=== PATIENT | female | born 1970 | race Caucasian/White ===

== ENCOUNTER 2019-07-20 05:08 | Emergency (ER) | payer BC ==
[~2019-07-20] VITALS: Ht 162.6 cm; Wt 108.9 kg
--- NOTE | 2019-07-20 05:08 | NUR ---
0505- Dr. Wall examining patient.
--- NOTE | 2019-07-20 05:08 | NUR ---
0500- PT PAMELA OBRIENS. TAKEN TO BED 4
--- NOTE | 2019-07-20 05:19 | NUR ---
INITIATED TELEPSYCH PER DR. CASON
[2019-07-20] MEDS ORDERED: MEX2.5 PO (05:27)
[2019-07-20] MEDS ORDERED: folic acid PO (05:27)
[2019-07-20] MEDS ORDERED: ALBU0.0912 INH (05:27)
[2019-07-20] MEDS ORDERED: QUET50TA PO (05:27)
[2019-07-20 05:29] VITALS: BP 116/70
--- NOTE | 2019-07-20 05:40 | NUR ---
48 YEAR OLD FEMALE BIBA FROM HOME. PER PATIENT SHE HAS BEEN UNABLE TO SLEEP BECAUSE SHE HAS BEEN CLEANING HER HOUSE NONSTOP BECAUSE SHE BELIEVES THERE ARE BED BUGS IN HER HOUSE. PATIENT STATES THAT SHE DOES NOT WANT TO GO BACK AND WANTS TO BE ABLE TO SLEEP. PATIENT STATES SHE HAS BEEN TAKING HER SEROQUIL MEDICATIONS ORDERED. PATIENT DENIES SI AND HI. PATIENT AOX4, BREATHING EVEN AND UNLABORED, SKIN WARM AND DRY. BED IN LOWEST POSITION, LOCKED, BED RAIL UPX1. ERMD AT BEDSIDE, NO OTHER COMPLAINTS AT THIS TIME. PMH - BIPOLAR, GALLBLADER REMOVAL, DM2, SLE ALLERGIES - NKA
--- NOTE | 2019-07-20 05:40 | NUR ---
Note vandana in EDM - 07/20/19 at 0715 by GINO 48 YEAR OLD FEMALE BIBA FROM HOME. PER PATIENT SHE HAS BEEN UNABLE TO SLEEP BECAUSE SHE HAS BEEN CLEANING HER HOUSE NONSTOP BECAUSE SHE BELIEVES THERE ARE BED BUGS IN HER HOUSE. PATIENT STATES THAT SHE DOES NOT WANT TO GO BACK AND WANTS TO BE ABLE TO SLEEP. PATIENT STATES SHE HAS BEEN TAKING HER SEROQUIL MEDICATIONS ORDERED. PATIENT AOX4, BREATHING EVEN AND UNLABORED, SKIN WARM AND DRY. BED IN LOWEST POSITION, LOCKED, BED RAIL UPX1. ERMD AT BEDSIDE, NO OTHER COMPLAINTS AT THIS TIME. PMH - BIPOLAR, GALLBLADER REMOVAL, DM2, SLE ALLERGIES - NKA
--- NOTE | 2019-07-20 05:54 | NUR ---
PATIENT STATES UNABLE TO URINATE, ERMD MADE AWARE
--- NOTE | 2019-07-20 05:55 | NUR ---
Ilia ross in [facility] - 07/20/19 at 0656 by MEDJJ PATIENT ON TELEPSYCHE
[2019-07-20 06:06] LABS: BASOPHILS % (AUTO) 0.6 % (0.0-2.0); EOSINOPHILS # (AUTO) 0.2 K/uL (0-0.4); EOSINOPHILS % (AUTO) 4.1 % (0.0-4.0); HEMATOCRIT 37.1 % (36-48); HEMOGLOBIN 12.1 g/dL (12.0-16.0); LYMPHOCYTES # (AUTO) 1.9 K/uL (2.5-16.5); LYMPHOCYTES % (AUTO) 32.7 % (20.5-51.1); MEAN CORPUSCULAR HEMOGLOBIN 28 pg (27-31); MEAN CORPUSCULAR HGB CONC 33 g/dL (33-37); MEAN CORPUSCULAR VOLUME 85.8 fL (80-94); MONOCYTES # (AUTO) 0.6 K/uL (0.8-1.0); MONOCYTES % (AUTO) 11.1 % (1.7-9.3); NEUTROPHILS % (AUTO) 51.5 % (42.2-75.2); PLATELET COUNT (AUTO) 331 K/uL (140-450); RED BLOOD CELL COUNT(AUTO) 4.32 MIL/uL (4.20-5.40); RED CELL DISTRIBUTION WIDTH 16.4 % (11.6-13.7); WHITE BLOOD COUNT (AUTO) 5.8 K/uL (4.8-10.8)
[2019-07-20 06:23] LABS: ALBUMIN 3.5 g/dL (3.4-5.0); ANION GAP 11.7 (8-16); ASPARTATE AMINOTRANSFERASE 37 U/L (15-37); CARBON DIOXIDE 25.7 mmol/L (21-32); CHLORIDE 102 mmol/L (98-107); CREATININE 0.9 mg/dL (0.6-1.3); GFR ARICAN-AMERICAN 87 mL/min (>90); GLUCOSE 115 mg/dL (74-106); POTASSIUM 3.4 mmol/L (3.5-5.1); SODIUM SERUM 136 mmol/L (136-145); TOTAL BILIRUBIN 0.7 mg/dL (0.0-1.0); UREA NITROGEN, BLOOD 13 mg/dL (7-18)
--- NOTE | 2019-07-20 06:26 | NUR ---
PATIENT CONTINUES TO TALK ONTO PHONE, STATES SHE IS "TOO WEAK" TO URINATE AND TOO WEAK TO PUT ON GOWN. PATIENT ALERT AND AWAKE, BREATHING EVEN AND UNLABORED
[2019-07-20 06:35] LABS: ACETAMINOPHEN < 0.5 ug/ml (10-30); SALICYLATE < 2.8 mg/dL (2.8-20.0)
--- NOTE | 2019-07-20 06:47 | NUR ---
ambulatory to restroom without assistance. strong/steady gait.
[2019-07-20 06:58] LABS: APPEARANCE,URINE CLEAR (CLEAR); BILIRUBIN,URINE NEGATIVE (NEGATIVE); BLOOD, URINE NEGATIVE (NEGATIVE); COLOR,URINE YELLOW (YELLOW); LEUKOCYTE ESTERASE ,URINE 1+ (NEGATIVE); NITRITE, URINE NEGATIVE (NEGATIVE); PH,URINE 5.5 (5.0-9.0); UGLUCOSE NEGATIVE (NEGATIVE)
[2019-07-20 07:02] LABS: RBC,URINE 0-5 /HPF (0-5)
[2019-07-20 07:06] LABS: BARBITURATE, URINE NEGATIVE ng/ml (NEG <=200); BENZODIAZEPINE, URINE NEGATIVE ng/mL (NEG <=200); CANNABINOID, URINE NEGATIVE ng/mL (NEG <=50); COCAINE, URINE NEGATIVE ng/mL (NEG <=300); OPIATE, URINE NEGATIVE ng/mL (NEG <=2000); PHENCYCLIDINE SCREEN,URINE NEGATIVE ng/mL (NEG <=25)
--- NOTE | 2019-07-20 07:06 | NUR ---
PATIENT ON TELEPSYCHE
--- NOTE | 2019-07-20 07:14 | NUR ---
REPORT GIVEN TO GIANNA DÍAZ, TRANSFER OF CARE AT THIS TIME
--- NOTE | 2019-07-20 07:15 | NUR ---
received report from ARJUN Nagy for continuation of care. Pt awake and resting in bed, no new needs at this time.
[2019-07-20 08:27] VITALS: BP 109/70
--- NOTE | 2019-07-20 08:30 | NUR ---
Patient discharged with v/s stable. Written and verbal after care instructions given and explained. Patient verbalized understanding. Ambulatory with steady gait. All questions addressed prior to discharge. Advised to follow up with PMD. Pt states she wants leave [facility] to go to [facility] because that is the hospital her insurance will pay for and that is the hospital she has been to prior. She is going to have a friend take her there. Denies SI/HI. Pt A & O x4.
== END 2019-07-20 08:30 | disposition home or self-care (01) ==
LOC: MED 05:08
DX: F31.9 Bipolar disorder, unspecified (principal); R53.83 Other fatigue; Z79.899 Other long term (current) drug therapy
CPT/HCPCS: 36415; 80053; 80305; 81001; 81025; 85025; 87086; 99283; G0480; G0482